=== PATIENT | female | born 1995 | race Two or more races ===

== ENCOUNTER 2025-01-11 07:45 | Outpatient (RCR) | payer MEDICAID, SELFPAY | END 2025-01-27 23:59 | disposition home or self-care (01) | LOC: SCTC 07:45 | PROVIDERS: PCP Nurse Practitioner Family; Referring Provider Nurse Practitioner Family; Visit Provider Nurse Practitioner Family | DX: D50.9 Iron deficiency anemia, unspecified (principal); N92.0 Excessive and frequent menstruation with regular cycle | CPT/HCPCS: 99213; G0463 ==